=== PATIENT | male | born 1965 | race Caucasian/White ===

== ENCOUNTER 2021-07-11 01:02 | Inpatient (IN) | payer BC, MEDICARE, OTHER ==
[~2021-07-11] VITALS: Ht 167.6 cm; Wt 87.6 kg
[~2021-07-11 01:02] MED LIST: CYCL-181; HYDR-1421; IBUP600T27
[2021-07-11] MEDS ORDERED: ALBUTEROL SULF 2.5 MG/0.5ML(0.5%) NEB SOLN NEB ONE (01:05)
[2021-07-11] MEDS ORDERED: IPRATROPIUM BROM 0.5 MG/2.5ML INH SOL NEB ONE (01:05)
[2021-07-11 01:47] LABS: Albumin 4.5 g/dL (3.4-5.0); BUN/Creatinine Ratio 14.3; Magnesium 2.5 mg/dL (1.6-2.6); Potassium 4.7 mmol/L (3.5-5.1)
[2021-07-11 01:49] LABS: Bilirubin, Total 0.3 mg/dL (0.2-1.0); Total Protein 7.7 g/dL (6.4-8.2)
[2021-07-11 01:50] LABS: Basophils # (auto) 0.1 10 ^3/uL (0-0.2); Basophils % (auto) 0.8 % (0.0-2.0); Eosinophils % (auto) 9.6 % (0.0-7.0); Hematocrit 50.3 % (41.0-53.0); Hemoglobin 17.1 g/dL (13.5-17.5); Lymphocytes # (auto) 3.2 10 ^3/uL (0.4-5.4); Lymphocytes % (auto) 32.7 % (10.0-50.0); Mean Corpuscular Hemoglobin 31.8 pg (28.0-32.0); Mean Corpuscular Volume 93.4 fL (80.0-100.0); Monocytes # (auto) 0.7 10 ^3/uL (0-1.3); Monocytes % (auto) 6.6 % (0.0-12.0); Neutrophils % (auto) 50.3 % (37.0-80.0); Nucleated Red Blood Cells % 0.1 %; Red Blood Cells 5.38 10^6/uL (4.5-5.90); Red Cell Distribution Width 12.6 % (11.8-14.3); White Blood Cell 9.9 10^3/uL (4.4-10.8)
[2021-07-11] MEDS: METOPROLOL TARTRATE 1MG/1ML-5ML VIAL IV SCH ×3 (02:15→03:36)
[2021-07-11 02:16] LABS: INR 1.05 (0.9-1.15)
[2021-07-11] MEDS ORDERED: cefTRIAXone 1GM/50ML D5W 50 ML IV ONE (02:45)
[2021-07-11] MEDS ORDERED: methylPREDNISolone SOD SUCC 125 MG/2 ML VL IV ONE (02:45)
[2021-07-11] MEDS ORDERED: ONDANSETRON HCL 4 MG/2 ML VIAL IV ONE (03:45)
[2021-07-11] MEDS ORDERED: NITROGLYCERIN 0.4 MG SL TAB SL PRN (06:30)
[2021-07-11] MEDS ORDERED: MORPHINE SULFATE INJECTION 2 MG/ML SYRG IV PRN (06:30)
[2021-07-11] MEDS ORDERED: DEXTROSE (50%) 50ML SYRG IV PRN ×2 (06:30→16:00)
[2021-07-11] MEDS ORDERED: ACETAMINOPHEN 325 MG TAB PO PRN (06:30)
[2021-07-11] MEDS ORDERED: ONDANSETRON HCL 4 MG/2 ML VIAL IV PRN (06:30)
[2021-07-11] MEDS ORDERED: DOCUSATE SOD 100 MG CAP PO PRN (06:30)
[2021-07-11] MEDS ORDERED: IOHEXOL 350 MG/ML 100ML IJ ONE (06:45)
[2021-07-11 07:14] LABS: Basophils # (auto) 0.1 10 ^3/uL (0-0.2); Basophils % (auto) 0.7 % (0.0-2.0); Eosinophils # (auto) 0.3 10 ^3/uL (0-0.8); Eosinophils % (auto) 2.8 % (0.0-7.0); Hematocrit 50.9 % (41.0-53.0); Hemoglobin 17.2 g/dL (13.5-17.5); Lymphocytes # (auto) 0.7 10 ^3/uL (0.4-5.4); Lymphocytes % (auto) 5.9 % (10.0-50.0); Mean Corpuscular Hemoglobin 31.5 pg (28.0-32.0); Mean Corpuscular Hgb Conc. 33.8 g/dL (32.0-36.0); Mean Corpuscular Volume 93.2 fL (80.0-100.0); Monocytes # (auto) 0.1 10 ^3/uL (0-1.3); Monocytes % (auto) 0.9 % (0.0-12.0); Neutrophils # (auto) 11.2 10 ^3/uL (1.6-8.6); Neutrophils % (auto) 89.7 % (37.0-80.0); Red Blood Cells 5.46 10^6/uL (4.5-5.90); Red Cell Distribution Width 12.2 % (11.8-14.3); White Blood Cell 12.5 10^3/uL (4.4-10.8)
[2021-07-11 07:21] LABS: Cholesterol 223 mg/dL (< 200)
[2021-07-11 07:25] LABS: HDL Cholesterol 23 mg/dL (40-59); Triglycerides 443 mg/dL (< 150)
[2021-07-11 08:18] LABS: Albumin 4.4 g/dL (3.4-5.0); Calcium 9.4 mg/dL (8.5-10.1); Potassium 4.9 mmol/L (3.5-5.1)
[2021-07-11 08:22] LABS: BUN/Creatinine Ratio 16.9; Bilirubin, Total 0.2 mg/dL (0.2-1.0); Total Protein 8.2 g/dL (6.4-8.2)
[2021-07-11 08:28] LABS: Urine Bacteria None Seen /hpf (None Seen); Urine WBC None Seen /hpf (0 - 3)
[2021-07-11 09:23] LABS: Urine Specific Gravity 1.031 (1.001-1.035)
[2021-07-11 09:24] LABS: Urine Blood 1+ /uL (Negative)
[2021-07-11] MEDS: IPRATROPIUM BROM 0.5 MG/2.5ML INH SOL NEB SCH ×4 (09:35→23:01)
[2021-07-11] MEDS: ALBUTEROL SULF 2.5 MG/0.5ML(0.5%) NEB SOLN NEB SCH ×4 (09:35→23:01)
[2021-07-11] MEDS: ZINC SULFATE 220mg CAP or TAB PO SCH (10:31)
[2021-07-11] MEDS: ASPirin 81 mg TAB PO SCH (10:31)
[2021-07-11] MEDS: ASCORBIC ACID 500 MG TAB PO SCH ×2 (10:31→22:19)
[2021-07-11] MEDS: FAMOTIDINE (10MG/ML) 2ML VL IV SCH ×2 (10:31→22:16)
[2021-07-11] MEDS ORDERED: methylPREDNISolone SOD SUCC 40 MG/ML VL IV SCH (12:00)
[2021-07-11] MEDS ORDERED: ACCU-CHEK COMFORT CURVE STRIP VI SCH (12:00)
[2021-07-11] MEDS ORDERED: InsuLIN REG 1unit/0.01ml Soln (100units/ml) SC SCH (12:00)
[2021-07-11 14:06] VITALS: BP 133/79
[2021-07-11] MEDS ORDERED: ARTIFICIAL TEARS 15ml EACHEYE PRN (14:15)
[2021-07-11] MEDS: SODIUM CHLOR 0.9% PF (SALINE LOCK) 10ML VIAL/SYR IV SCH ×2 (14:50→22:16)
[2021-07-11] MEDS ORDERED: NICOTINE 21MG/24 HR TOPICAL PATCH TD ONE (16:00)
[2021-07-11 17:00] VITALS: BP 143/75
[2021-07-11 17:12] LABS: Alcohol, Urine < 3.0 mg/dL (0-10); Amphetamine Screen, Urine NEGATIVE (NEGATIVE); Barbiturate Scree,Urine NEGATIVE (NEGATIVE); Benzodiazephine Screen, Urine NEGATIVE (NEGATIVE); Cannabinoid Screen, Urine NEGATIVE (NEGATIVE); Cocaine Screen, Urine NEGATIVE (NEGATIVE); Opiate Scree,Urine NEGATIVE (NEGATIVE); Phencyclidine Screen, Urine NEGATIVE (NEGATIVE)
[2021-07-11] MEDS: ACCU-CHEK COMFORT CURVE STRIP VI SCH ×2 (18:23→23:58)
[2021-07-11] MEDS: InsuLIN REG 1unit/0.01ml Soln (100units/ml) SC SCH (18:26)
[2021-07-11 20:00] VITALS: BP 115/78
[2021-07-11 22:00] VITALS: BP 115/78
[2021-07-11] MEDS: methylPREDNISolone SOD SUCC 40 MG/ML VL IV SCH (22:18)
[2021-07-11] MEDS: ATORVASTATIN 20 MG TAB PO SCH (22:18)
[2021-07-11] MEDS: HYDROcodone-ACET 5/325MG TAB PO PRN (22:20)
[2021-07-12] VITALS (7 sets, daily range): BP systolic 109–159; BP diastolic 72–97
[2021-07-12] MEDS: IPRATROPIUM BROM 0.5 MG/2.5ML INH SOL NEB SCH ×6 (03:00→22:49)
[2021-07-12] MEDS: ALBUTEROL SULF 2.5 MG/0.5ML(0.5%) NEB SOLN NEB SCH ×4 (03:00→15:04)
[2021-07-12] MEDS: SODIUM CHLOR 0.9% PF (SALINE LOCK) 10ML VIAL/SYR IV SCH ×3 (05:59→22:00)
[2021-07-12] MEDS: ACCU-CHEK COMFORT CURVE STRIP VI SCH ×3 (05:59→18:00)
[2021-07-12] MEDS: InsuLIN REG 1unit/0.01ml Soln (100units/ml) SC SCH ×4 (06:02→18:08)
[2021-07-12 07:06] LABS: Basophils # (auto) 0 10 ^3/uL (0-0.2); Basophils % (auto) 0.3 % (0.0-2.0); Eosinophils # (auto) 0 10 ^3/uL (0-0.8); Eosinophils % (auto) 0.1 % (0.0-7.0); Hematocrit 44.9 % (41.0-53.0); Hemoglobin 15.4 g/dL (13.5-17.5); Lymphocytes # (auto) 1.3 10 ^3/uL (0.4-5.4); Lymphocytes % (auto) 11.8 % (10.0-50.0); Mean Corpuscular Hemoglobin 31.8 pg (28.0-32.0); Mean Corpuscular Hgb Conc. 34.2 g/dL (32.0-36.0); Mean Corpuscular Volume 92.8 fL (80.0-100.0); Monocytes # (auto) 0.5 10 ^3/uL (0-1.3); Monocytes % (auto) 4.5 % (0.0-12.0); Neutrophils # (auto) 9.2 10 ^3/uL (1.6-8.6); Neutrophils % (auto) 83.3 % (37.0-80.0); Nucleated Red Blood Cells % 0.1 %; Red Blood Cells 4.84 10^6/uL (4.5-5.90); Red Cell Distribution Width 12.5 % (11.8-14.3); White Blood Cell 11.1 10^3/uL (4.4-10.8)
[2021-07-12 07:23] LABS: Calcium 9.3 mg/dL (8.5-10.1); Potassium 4.9 mmol/L (3.5-5.1)
[2021-07-12 07:27] LABS: BUN/Creatinine Ratio 18.5
[2021-07-12] MEDS: HYDROcodone-ACET 5/325MG TAB PO PRN ×3 (07:29→23:02)
[2021-07-12 07:33] LABS: Bilirubin, Total 0.4 mg/dL (0.2-1.0); Total Protein 7.1 g/dL (6.4-8.2)
[2021-07-12] MEDS: methylPREDNISolone SOD SUCC 40 MG/ML VL IV SCH ×2 (08:50→22:00)
[2021-07-12] MEDS: FAMOTIDINE (10MG/ML) 2ML VL IV SCH ×2 (08:51→22:00)
[2021-07-12] MEDS: ASPirin 81 mg TAB PO SCH (08:52)
[2021-07-12] MEDS: ZINC SULFATE 220mg CAP or TAB PO SCH (08:52)
[2021-07-12] MEDS: ASCORBIC ACID 500 MG TAB PO SCH ×2 (08:52→22:01)
[2021-07-12] MEDS ORDERED: ALBUTEROL SULF 2.5 MG/0.5ML(0.5%) NEB SOLN NEB PRN (10:45)
[2021-07-12] MEDS: guaiFENesin-DM 100/10mg/5ml SYR PO PRN ×4 (10:47→17:38)
[2021-07-12] MEDS ORDERED: AZITHROMYCIN 500MG/ 250ML 250 ML IV ONE (14:15)
[2021-07-12] MEDS ORDERED: LORazepam 0.5 MG TAB PO PRN (17:00)
[2021-07-12] MEDS ORDERED: hydrALAZINE HCL 20 MG/ML VL IV PRN (17:00)
[2021-07-12] MEDS ORDERED: GABA-339 PO (17:13)
[2021-07-12] MEDS: NICOTINE 21MG/24 HR TOPICAL PATCH TD SCH (17:13)
[2021-07-12] MEDS ORDERED: MONT-8 PO (17:39)
[2021-07-12] MEDS ORDERED: EPIN0.12 IN (17:39)
[2021-07-12] MEDS ORDERED: ALBU1AER4 IN (17:39)
[2021-07-12] MEDS ORDERED: OXYC-113 PO (17:39)
[2021-07-12] MEDS ORDERED: LISI40TA11 PO (17:39)
[2021-07-12] MEDS ORDERED: FENO160T8 PO (17:39)
[2021-07-12] MEDS: LEVALBUTEROL HCL 1.25 MG/3 ML NEB NEB SCH (18:45)
[2021-07-12] MEDS: ATORVASTATIN 20 MG TAB PO SCH (22:01)
[2021-07-12] MEDS: LEVALBUTEROL HCL 1.25 MG/3 ML NEB NEB PRN (22:49)
[2021-07-13] MEDS: InsuLIN REG 1unit/0.01ml Soln (100units/ml) SC SCH ×4 (00:02→17:17)
[2021-07-13] MEDS: LEVALBUTEROL HCL 1.25 MG/3 ML NEB NEB SCH ×5 (02:10→18:48)
[2021-07-13] MEDS: IPRATROPIUM BROM 0.5 MG/2.5ML INH SOL NEB SCH ×5 (02:10→18:48)
[2021-07-13 05:00] VITALS: BP 135/78
[2021-07-13] MEDS: guaiFENesin-DM 100/10mg/5ml SYR PO PRN (05:09)
[2021-07-13] MEDS: ACCU-CHEK COMFORT CURVE STRIP VI SCH ×4 (06:01→17:17)
[2021-07-13] MEDS: SODIUM CHLOR 0.9% PF (SALINE LOCK) 10ML VIAL/SYR IV SCH ×2 (06:01→14:00)
[2021-07-13] MEDS ORDERED: REGADENOSON 0.4 MG/5 ML SYRG IV ONE ×2 (07:45→07:47)
[2021-07-13] MEDS: LEVALBUTEROL HCL 1.25 MG/3 ML NEB NEB PRN (08:12)
[2021-07-13 09:00] VITALS: BP 155/80
[2021-07-13] MEDS: ASCORBIC ACID 500 MG TAB PO SCH (09:57)
[2021-07-13] MEDS: FAMOTIDINE (10MG/ML) 2ML VL IV SCH (09:57)
[2021-07-13] MEDS: ASPirin 81 mg TAB PO SCH (09:57)
[2021-07-13] MEDS: methylPREDNISolone SOD SUCC 40 MG/ML VL IV SCH (09:57)
[2021-07-13] MEDS: HYDROcodone-ACET 5/325MG TAB PO PRN (09:57)
[2021-07-13] MEDS ORDERED: AZITHROMYCIN 500MG/ 250ML 250 ML IV SCH (10:00)
[2021-07-13 13:00] VITALS: BP 134/89
[2021-07-13] MEDS ORDERED: METOPROLOL TARTRATE 25 MG TAB PO ONE (13:15)
[2021-07-13] MEDS ORDERED: OXYCODONE W/ ACETAMINOPHEN 5/325MG TABLET PO PRN (13:30)
[2021-07-13] MEDS ORDERED: GABAPENTIN 300 MG CAP PO SCH (14:00)
[2021-07-13] MEDS: NICOTINE 21MG/24 HR TOPICAL PATCH TD SCH (16:00)
[2021-07-13 17:00] VITALS: BP 156/89
[2021-07-13] MEDS ORDERED: METOPROLOL TARTRATE 25 MG TAB PO SCH (22:00)
[2021-07-14] MEDS ORDERED: LISINOPRIL 20 MG TAB PO SCH (10:00)
== END 2021-07-13 19:00 | disposition left against medical advice (07) | DRG 189 ==
LOC: ER 01:02 → TELE 06:30 → TELE-CENTR 16:13
PROVIDERS: ADMIT Nurse Practitioner Family; ATTEND Internal Medicine
DX: J96.01 Acute respiratory failure with hypoxia (principal); J44.1 Chronic obstructive pulmonary disease with (acute) exacerbation; E11.65 Type 2 diabetes mellitus with hyperglycemia; E78.5 Hyperlipidemia, unspecified; I10 Essential (primary) hypertension; E66.9 Obesity, unspecified; F17.210 Nicotine dependence, cigarettes, uncomplicated; K76.0 Fatty (change of) liver, not elsewhere classified; G89.29 Other chronic pain; M54.9 Dorsalgia, unspecified; R00.0 Tachycardia, unspecified; Z68.31 Body mass index [BMI] 31.0-31.9, adult; Z71.6 Tobacco abuse counseling; Z53.29 Procedure and treatment not carried out because of patient's decision for other reasons; Z79.84 Long term (current) use of oral hypoglycemic drugs
CPT/HCPCS: 36415; 36600; 71045; 71275; 78452; 80053; 80061; 80307; 81001; 82805; 82962; 83036; 83735; 83880; 84443; 84484; 85025; 85379; 85610; 85730; 93005; 93017; 93306; 93886; 94640; 96365; 96372; 96375; G0378; J0696; J1815; J2405; J3490

== ENCOUNTER 2021-07-30 13:20 | Inpatient (IN) | payer BC ==
[~2021-07-30] VITALS: Ht 167.6 cm; Wt 83.2 kg
[~2021-07-30 13:20] MED LIST changes: +ALBU1AER4 IN; -CYCL-181; +EPIN0.12 IN; +FENO160T8 PO; +GABA-339 PO; -HYDR-1421; -IBUP600T27; +LISI40TA11 PO; +MONT-8 PO; +OXYC-113 PO
[2021-07-30 14:33] LABS: Basophils # (auto) 0.1 10 ^3/uL (0-0.2); Basophils % (auto) 1.3 % (0.0-2.0); Eosinophils # (auto) 0.3 10 ^3/uL (0-0.8); Eosinophils % (auto) 2.9 % (0.0-7.0); Hematocrit 46.3 % (41.0-53.0); Hemoglobin 16.3 g/dL (13.5-17.5); Lymphocytes # (auto) 1.4 10 ^3/uL (0.4-5.4); Lymphocytes % (auto) 14.9 % (10.0-50.0); Mean Corpuscular Hemoglobin 31.8 pg (28.0-32.0); Mean Corpuscular Hgb Conc. 35.2 g/dL (32.0-36.0); Mean Corpuscular Volume 90.4 fL (80.0-100.0); Monocytes # (auto) 0.7 10 ^3/uL (0-1.3); Monocytes % (auto) 7.5 % (0.0-12.0); Neutrophils # (auto) 6.8 10 ^3/uL (1.6-8.6); Neutrophils % (auto) 73.4 % (37.0-80.0); Red Blood Cells 5.12 10^6/uL (4.5-5.90); Red Cell Distribution Width 12.4 % (11.8-14.3); White Blood Cell 9.3 10^3/uL (4.4-10.8)
[2021-07-30 14:50] LABS: Albumin 4.2 g/dL (3.4-5.0); Calcium 9.7 mg/dL (8.5-10.1); Magnesium 2.3 mg/dL (1.6-2.6); Potassium 3.5 mmol/L (3.5-5.1)
[2021-07-30 14:52] LABS: BUN/Creatinine Ratio 9.6
[2021-07-30 15:04] LABS: Bilirubin, Total 0.6 mg/dL (0.2-1.0); Total Protein 8.1 g/dL (6.4-8.2)
[2021-07-30 15:40] LABS: INR 1.28 (0.9-1.15); Partial Thromboplastin Time 28.8 sec (23.6-33.0)
[2021-07-30] MEDS ORDERED: predniSONE 20 MG TAB PO ONE (16:45)
[2021-07-30] MEDS ORDERED: IPRATROPIUM BROM 0.5 MG/2.5ML INH SOL NEB ONE (17:30)
[2021-07-30] MEDS ORDERED: ALBUTEROL SULF 2.5 MG/0.5ML(0.5%) NEB SOLN NEB ONE (17:30)
[2021-07-31] MEDS ORDERED: ACETAMINOPHEN 325 MG TAB PO PRN
[2021-07-31] MEDS ORDERED: ONDANSETRON HCL 4 MG/2 ML VIAL IV PRN
[2021-07-31] MEDS ORDERED: NITROGLYCERIN 0.4 MG SL TAB SL PRN
[2021-07-31] MEDS ORDERED: DOCUSATE SOD 100 MG CAP PO PRN
[2021-07-31] MEDS ORDERED: DEXTROSE (50%) 50ML SYRG IV PRN
[2021-07-31] MEDS ORDERED: MORPHINE SULFATE INJ 2 MG/ml SYRG IV PRN
[2021-07-31] MEDS ORDERED: LORazepam 2MG/ML-1ML VIAL IV PRN (00:30)
[2021-07-31] MEDS ORDERED: methylPREDNISolone SOD SUCC 40 MG/ML VL IV SCH (06:00)
[2021-07-31 06:33] LABS: Basophils # (auto) 0.1 10 ^3/uL (0-0.2); Basophils % (auto) 0.5 % (0.0-2.0); Eosinophils # (auto) 0.1 10 ^3/uL (0-0.8); Eosinophils % (auto) 1.1 % (0.0-7.0); Hematocrit 43.9 % (41.0-53.0); Hemoglobin 15.6 g/dL (13.5-17.5); Lymphocytes # (auto) 2.1 10 ^3/uL (0.4-5.4); Lymphocytes % (auto) 19.4 % (10.0-50.0); Mean Corpuscular Hemoglobin 32.2 pg (28.0-32.0); Mean Corpuscular Hgb Conc. 35.6 g/dL (32.0-36.0); Mean Corpuscular Volume 90.5 fL (80.0-100.0); Monocytes # (auto) 0.9 10 ^3/uL (0-1.3); Monocytes % (auto) 8.5 % (0.0-12.0); Neutrophils # (auto) 7.6 10 ^3/uL (1.6-8.6); Neutrophils % (auto) 70.5 % (37.0-80.0); Nucleated Red Blood Cells % 0.1 %; Red Blood Cells 4.85 10^6/uL (4.5-5.90); Red Cell Distribution Width 12.5 % (11.8-14.3); White Blood Cell 10.8 10^3/uL (4.4-10.8)
[2021-07-31 06:40] LABS: Calcium 9.5 mg/dL (8.5-10.1); Potassium 3.5 mmol/L (3.5-5.1)
[2021-07-31 06:42] LABS: Albumin 4.1 g/dL (3.4-5.0); BUN/Creatinine Ratio 19.1
[2021-07-31 06:45] LABS: Bilirubin, Total 0.5 mg/dL (0.2-1.0); Total Protein 7.3 g/dL (6.4-8.2)
[2021-07-31] MEDS: SODIUM CHLOR 0.9% PF (SALINE LOCK) 10ML VIAL/SYR IV SCH ×3 (06:46→21:57)
[2021-07-31] MEDS ORDERED: SODIUM CHLORIDE 0.9% 500 ML IV ONE (07:00)
[2021-07-31] MEDS ORDERED: METOPROLOL TARTRATE 25 MG TAB PO ONE (07:30)
[2021-07-31] MEDS: ACCU-CHEK COMFORT CURVE STRIP VI SCH ×4 (07:46→21:58)
[2021-07-31] MEDS: InsuLIN REG 1unit/0.01ml Soln (100units/ml) SC SCH ×4 (07:46→21:58)
[2021-07-31] MEDS: HYDROcodone-ACET 5/325MG TAB PO PRN ×3 (08:11→21:58)
[2021-07-31] MEDS: FAMOTIDINE (10MG/ML) 2ML VL IV SCH ×2 (10:17→21:57)
[2021-07-31] MEDS: ENOXAPARIN SOD 40 MG/0.4 ML SYRINGE SC SCH (10:17)
[2021-07-31 10:58] VITALS: BP 128/75
[2021-07-31] MEDS: IPRATROPIUM BROM 0.5 MG/2.5ML INH SOL NEB PRN ×2 (12:43→22:22)
[2021-07-31] MEDS ORDERED: ATOR40TA52 PO (13:04)
[2021-07-31] MEDS ORDERED: cefTRIAXone 1GM/50ML D5W 50 ML IV ONE (13:45)
[2021-07-31] MEDS ORDERED: AZITHROMYCIN 250 MG TAB PO ONE (13:45)
[2021-07-31 17:00] VITALS: BP 142/89
[2021-07-31] MEDS: methylPREDNISolone SOD SUCC 40 MG/ML VL IV SCH (21:56)
[2021-07-31] MEDS: METOPROLOL TARTRATE 25 MG TAB PO SCH (21:57)
[2021-07-31] MEDS: MONTELUKAST SODIUM 10 MG TAB PO SCH (21:57)
[2021-07-31 22:00] VITALS: BP 137/88
[2021-07-31] MEDS: ALBUTEROL SULF 2.5 MG/0.5ML(0.5%) NEB SOLN NEB PRN (22:22)
[2021-08-01] MEDS: HYDROcodone-ACET 5/325MG TAB PO PRN ×4 (01:37→21:53)
[2021-08-01 05:00] VITALS: BP 142/89
[2021-08-01] MEDS: InsuLIN REG 1unit/0.01ml Soln (100units/ml) SC SCH ×4 (06:35→21:52)
[2021-08-01] MEDS: SODIUM CHLOR 0.9% PF (SALINE LOCK) 10ML VIAL/SYR IV SCH ×3 (06:35→21:46)
[2021-08-01] MEDS: ACCU-CHEK COMFORT CURVE STRIP VI SCH ×4 (06:36→21:52)
[2021-08-01] MEDS: IPRATROPIUM BROM 0.5 MG/2.5ML INH SOL NEB PRN ×4 (07:07→21:44)
[2021-08-01] MEDS: ALBUTEROL SULF 2.5 MG/0.5ML(0.5%) NEB SOLN NEB PRN ×4 (07:07→21:44)
[2021-08-01 09:00] VITALS: BP 135/79
[2021-08-01] MEDS: cefTRIAXone 1GM/50ML D5W 50 ML IV SCH (09:39)
[2021-08-01] MEDS: AZITHROMYCIN 250 MG TAB PO SCH (09:51)
[2021-08-01] MEDS: ENOXAPARIN SOD 40 MG/0.4 ML SYRINGE SC SCH (09:51)
[2021-08-01] MEDS: methylPREDNISolone SOD SUCC 40 MG/ML VL IV SCH ×2 (09:52→21:46)
[2021-08-01] MEDS: METOPROLOL TARTRATE 25 MG TAB PO SCH ×4 (10:00→21:47)
[2021-08-01 13:00] VITALS: BP 128/84
[2021-08-01 17:00] VITALS: BP 140/80
[2021-08-01] MEDS: MONTELUKAST SODIUM 10 MG TAB PO SCH (21:46)
[2021-08-01 22:00] VITALS: BP 123/86
[2021-08-02] MEDS: ALBUTEROL SULF 2.5 MG/0.5ML(0.5%) NEB SOLN NEB PRN (02:47)
[2021-08-02] MEDS: IPRATROPIUM BROM 0.5 MG/2.5ML INH SOL NEB PRN (02:47)
[2021-08-02] MEDS: HYDROcodone-ACET 5/325MG TAB PO PRN ×2 (02:49→10:30)
[2021-08-02 05:00] VITALS: BP 139/86
[2021-08-02] MEDS: SODIUM CHLOR 0.9% PF (SALINE LOCK) 10ML VIAL/SYR IV SCH ×3 (05:38→21:06)
[2021-08-02] MEDS: InsuLIN REG 1unit/0.01ml Soln (100units/ml) SC SCH ×4 (06:16→21:20)
[2021-08-02] MEDS: ACCU-CHEK COMFORT CURVE STRIP VI SCH ×4 (06:16→21:10)
[2021-08-02] MEDS: ALBUTEROL SULF 2.5 MG/0.5ML(0.5%) NEB SOLN NEB SCH ×5 (07:11→22:17)
[2021-08-02] MEDS: IPRATROPIUM BROM 0.5 MG/2.5ML INH SOL NEB SCH ×5 (07:12→22:17)
[2021-08-02 08:45] VITALS: BP 140/91
[2021-08-02] MEDS: cefTRIAXone 1GM/50ML D5W 50 ML IV SCH (09:28)
[2021-08-02] MEDS: methylPREDNISolone SOD SUCC 40 MG/ML VL IV SCH ×2 (09:29→21:06)
[2021-08-02] MEDS: ENOXAPARIN SOD 40 MG/0.4 ML SYRINGE SC SCH (09:29)
[2021-08-02] MEDS: AZITHROMYCIN 250 MG TAB PO SCH (09:29)
[2021-08-02] MEDS: METOPROLOL TARTRATE 25 MG TAB PO SCH ×2 (09:30→21:07)
[2021-08-02] MEDS ORDERED: PRED20TA2 PO (10:39)
[2021-08-02 13:00] VITALS: BP 137/86
[2021-08-02] MEDS: GABAPENTIN 300 MG CAP PO SCH ×2 (15:24→21:09)
[2021-08-02 16:47] VITALS: BP 133/81
[2021-08-02] MEDS: OXYCODONE W/ ACETAMINOPHEN 5/325MG TABLET PO PRN (18:14)
[2021-08-02] MEDS: MONTELUKAST SODIUM 10 MG TAB PO SCH (21:10)
[2021-08-02 22:00] VITALS: BP 135/81
[2021-08-03] MEDS: OXYCODONE W/ ACETAMINOPHEN 5/325MG TABLET PO PRN ×3 (02:03→21:38)
[2021-08-03] MEDS: ALBUTEROL SULF 2.5 MG/0.5ML(0.5%) NEB SOLN NEB SCH ×5 (02:34→22:50)
[2021-08-03] MEDS: IPRATROPIUM BROM 0.5 MG/2.5ML INH SOL NEB SCH ×5 (02:34→22:51)
[2021-08-03 05:00] VITALS: BP 113/84
[2021-08-03] MEDS: GABAPENTIN 300 MG CAP PO SCH ×3 (06:04→21:38)
[2021-08-03] MEDS: ACCU-CHEK COMFORT CURVE STRIP VI SCH ×4 (06:04→21:38)
[2021-08-03] MEDS: InsuLIN REG 1unit/0.01ml Soln (100units/ml) SC SCH ×4 (06:06→21:38)
[2021-08-03] MEDS: SODIUM CHLOR 0.9% PF (SALINE LOCK) 10ML VIAL/SYR IV SCH ×3 (06:07→21:37)
[2021-08-03] MEDS: cefTRIAXone 1GM/50ML D5W 50 ML IV SCH (08:46)
[2021-08-03 09:00] VITALS: BP 144/80
[2021-08-03] MEDS: methylPREDNISolone SOD SUCC 40 MG/ML VL IV SCH ×2 (10:26→21:37)
[2021-08-03] MEDS: ENOXAPARIN SOD 40 MG/0.4 ML SYRINGE SC SCH (10:26)
[2021-08-03] MEDS: AZITHROMYCIN 250 MG TAB PO SCH (10:26)
[2021-08-03] MEDS: METOPROLOL TARTRATE 25 MG TAB PO SCH ×2 (10:27→21:37)
[2021-08-03 13:00] VITALS: BP 133/87
[2021-08-03 13:52] VITALS: BP 133/87
[2021-08-03 16:37] VITALS: BP 132/84
[2021-08-03] MEDS: MONTELUKAST SODIUM 10 MG TAB PO SCH (21:38)
[2021-08-03 22:00] VITALS: BP 119/81
[2021-08-04] MEDS: IPRATROPIUM BROM 0.5 MG/2.5ML INH SOL NEB SCH ×3 (02:45→11:03)
[2021-08-04] MEDS: ALBUTEROL SULF 2.5 MG/0.5ML(0.5%) NEB SOLN NEB SCH ×3 (02:45→11:03)
[2021-08-04 05:00] VITALS: BP 114/76
[2021-08-04] MEDS: OXYCODONE W/ ACETAMINOPHEN 5/325MG TABLET PO PRN ×2 (05:48→14:00)
[2021-08-04] MEDS: SODIUM CHLOR 0.9% PF (SALINE LOCK) 10ML VIAL/SYR IV SCH ×2 (05:48→14:16)
[2021-08-04] MEDS: GABAPENTIN 300 MG CAP PO SCH ×2 (05:48→14:00)
[2021-08-04] MEDS: ACCU-CHEK COMFORT CURVE STRIP VI SCH ×2 (06:03→11:52)
[2021-08-04] MEDS: InsuLIN REG 1unit/0.01ml Soln (100units/ml) SC SCH ×2 (06:07→11:30)
[2021-08-04 09:00] VITALS: BP 134/92
[2021-08-04] MEDS: ENOXAPARIN SOD 40 MG/0.4 ML SYRINGE SC SCH (10:07)
[2021-08-04] MEDS: methylPREDNISolone SOD SUCC 40 MG/ML VL IV SCH (10:07)
[2021-08-04] MEDS: AZITHROMYCIN 250 MG TAB PO SCH (10:08)
[2021-08-04] MEDS: METOPROLOL TARTRATE 25 MG TAB PO SCH (10:08)
[2021-08-04] MEDS: cefTRIAXone 1GM/50ML D5W 50 ML IV SCH (10:08)
[2021-08-04] MEDS ORDERED: ALBU1AER4 IN (10:24)
[2021-08-04] MEDS ORDERED: DOXY-286 PO (10:24)
[2021-08-04 12:53] VITALS: BP 139/92
== END 2021-08-04 14:13 | disposition home or self-care (01) | DRG 189 ==
LOC: ER 13:20 → TELE 23:50 → TELE-WESTW 07-31 12:17
PROVIDERS: ADMIT Nurse Practitioner Family; ATTEND Internal Medicine Nephrology
DX: J96.21 Acute and chronic respiratory failure with hypoxia (principal); J44.1 Chronic obstructive pulmonary disease with (acute) exacerbation; J98.11 Atelectasis; F41.9 Anxiety disorder, unspecified; I10 Essential (primary) hypertension; I65.29 Occlusion and stenosis of unspecified carotid artery; E78.1 Pure hyperglyceridemia; Z20.822 Contact with and (suspected) exposure to COVID-19; F17.200 Nicotine dependence, unspecified, uncomplicated; G89.29 Other chronic pain; E11.9 Type 2 diabetes mellitus without complications; E78.5 Hyperlipidemia, unspecified; M19.90 Unspecified osteoarthritis, unspecified site
CPT/HCPCS: 36415; 71045; 80053; 82962; 83735; 84484; 85025; 85610; 85730; 93005; 94640; G0378; J0696; J1815; J3490

== ENCOUNTER 2023-02-04 07:27 | Emergency (ER) | payer BC ==
[~2023-02-04] VITALS: Ht 167.6 cm; Wt 95.0 kg
[~2023-02-04 07:27] MED LIST changes: +ATOR40TA52 PO; +DOXY-286 PO; +FENO160T PO; -FENO160T8 PO; -LISI40TA11 PO; +LISI40TA16 PO; +PRED20TA2 PO
[2023-02-04 08:33] VITALS: BP 149/86; PULSE 118; RESP 18; TEMP 99.2; O2SAT 97
[2023-02-04] MEDS ORDERED: TETANUS-DIPTH-ACEL PERTUSSIS 0.5ML SYR Tdap IM ONE (09:00)
[2023-02-04] MEDS ORDERED: CEPH500C PO (09:35)
== END 2023-02-04 09:42 | disposition home or self-care (01) ==
LOC: ER 07:27
DX: S51.811A Laceration without foreign body of right forearm, initial encounter (principal); I10 Essential (primary) hypertension; E11.9 Type 2 diabetes mellitus without complications; E78.5 Hyperlipidemia, unspecified; J44.9 Chronic obstructive pulmonary disease, unspecified; Z79.2 Long term (current) use of antibiotics; Z79.899 Other long term (current) drug therapy; W26.0XXA Contact with knife, initial encounter; Y93.89 Activity, other specified; Y92.89 Other specified places as the place of occurrence of the external cause; Y99.8 Other external cause status
CPT/HCPCS: 90471; 90715